=== PATIENT | male | born 1985 | race American Indian/Alaskan Native ===

== ENCOUNTER 2020-05-23 17:12 | Emergency (ER) | payer SELFPAY ==
--- NOTE | 2020-05-23 18:03 | Emergency Department Report ---
ED Psych HPI - General Chief Complaint: Psych Stated Complaint: PSYCH EVAL Time Seen by Provider: 05/23/20 17:53 Source: patient, EMS Mode of arrival: Ambulatory Limitations: No Limitations - History of Present Illness Initial Comments: 34-year-old male with a past medical history of asthma and HIV brought in by EMS for paranoia. Patient feels for the last 2 weeks and was out to get him. He lives in [facility]. He came to the side [facility] and attempt to stay with his ex-girlfriend but she was at home. He called the police because he kept seeing people coming after him. He states he is people do not speak nor do they brandish weapons but he feels like his life is in danger. A while in the waiting room he also saw these people and expresses fear in the ED that the people will still come after him. He feels safer in the ED in the room with the door closed. He denies suicidal homicidal ideation. Denies previous psychiatric history. He is not currently on any meds for HIV and does not know his CD4 count or viral load. Patient states he called the police because he wanted a ride to the [employer] bus stop in [facility] so he can leave town - Related Data Home Medications Medication Instructions Recorded Confirmed Last Taken No Known Home Medications [No 05/24/20 05/26/20 Unknown Reported Home Medications] Allergies Allergy/AdvReac Type Severity Reaction Status Date / Time No Known Allergies Allergy Unverified 05/23/20 17:38 ED Review of Systems ROS: Stated complaint: PSYCH EVAL Other details as noted in HPI Comment: All other systems reviewed and negative ED Past Medical Hx - Past Medical History Previous Medical History?: Yes Hx Asthma: Yes Hx HIV: Yes (Complera) - Surgical History Past Surgical History?: No - Medications Home Medications: Home Medications Medication Instructions Recorded Confirmed Last Taken Type No Known Home Medications [No 05/24/20 05/26/20 Unknown History Reported Home Medications] ED Physical Exam - General Limitations: No Limitations - Other Other exam information: General: No acute distress Head: Atraumatic Eyes: normal appearance ENT: Moist mucous membranes Neck: Normal appearance, no midline tenderness Chest: Clear to auscultation bilaterally CV: Regular rate and rhythm Abdomen: Soft, normal bowel sounds, nontender, nondistended, no rebound or guarding Back: Normal inspection Extremity: Normal inspection, full range of motion Neuro: Alert O x 3, no facial asymmetry, speech clear, no gross motor sensory deficit Psych: paranoid but cooperative Skin: No rash ED Course Vital Signs 05/23/20 05/24/20 05/24/20 20:08 02:09 08:46 Temperature 98.5 F 98.4 F 98.5 F Pulse Rate 90 91 H 81 Respiratory 18 18 18 Rate Blood Pressure 108/52 102/56 134/74 [Left] O2 Sat by Pulse 98 97 99 Oximetry 05/24/20 19:59 Temperature 99.3 F Pulse Rate 98 H Respiratory 18 Rate Blood Pressure 107/61 [Left] O2 Sat by Pulse 97 Oximetry - Consultations Consultation #1: 05/23/20 17:58 called [facility] crisis provider, left a message, no response. 05/23/20 18:14 Give that crisis provider evaluated patient and agrees patient is psychotic and meets 1013 criteria. ED Medical Decision Making - Lab Data Result diagrams: 05/23/20 18:02 05/24/20 18:30 Lab Results 05/23/20 05/23/20 05/23/20 Range/Units 18:02 18:02 18:02 WBC 9.3 (4.5-11.0) K/mm3 RBC 3.86 (3.65-5.03) M/mm3 Hgb 12.4 (11.8-15.2) gm/dl Hct 37.4 (35.5-45.6) % MCV 97 H (84-94) fl MCH 32 (28-32) pg MCHC 33 (32-34) % RDW 12.9 L (13.2-15.2) % Plt Count 297 (140-440) K/mm3 Lymph % (Auto) 18.7 (13.4-35.0) % Ogle % (Auto) 8.7 H (0.0-7.3) % Eos % (Auto) 1.5 (0.0-4.3) % Baso % (Auto) 1.0 (0.0-1.8) % Lymph # (Auto) 1.7 (1.2-5.4) K/mm3 Ogle # (Auto) 0.8 (0.0-0.8) K/mm3 Eos # (Auto) 0.1 (0.0-0.4) K/mm3 Baso # (Auto) 0.1 (0.0-0.1) K/mm3 Seg Neutrophils % 70.1 H (40.0-70.0) % Seg Neutrophils # 6.5 (1.8-7.7) K/mm3 Sodium 134 L (137-145) mmol/L Potassium 3.7 (3.6-5.0) mmol/L Chloride 98.7 (98-107) mmol/L Carbon Dioxide 22 (22-30) mmol/L Anion Gap 17 mmol/L BUN 11 (9-20) mg/dL Creatinine 0.7 L (0.8-1.3) mg/dL Estimated GFR > 60 ml/min BUN/Creatinine Ratio 16 % Glucose 108 H (75-100) mg/dL Calcium 9.0 (8.4-10.2) mg/dL Urine Color (Yellow) Urine Turbidity (Clear) Urine pH (5.0-7.0) Ur Specific [place] (1.003-1.030) Urine Protein (Negative) mg/dL Urine Glucose (UA) (Negative) mg/dL Urine Ketones (Negative) mg/dL Urine Blood (Negative) Urine Nitrite (Negative) Urine Bilirubin (Negative) Urine Urobilinogen (<2.0) mg/dL Ur Leukocyte Esterase (Negative) Urine WBC (Auto) (0.0-6.0) /HPF Urine RBC (Auto) (0.0-6.0) /HPF U Epithel Cells (Auto) (0-13.0) /HPF Urine Mucus /HPF Salicylates < 0.3 L (2.8-20.0) mg/dL Urine Opiates Screen Urine Methadone Screen Acetaminophen (10.0-30.0) ug/mL Ur Barbiturates Screen Ur Phencyclidine Scrn Ur Amphetamines Screen U Benzodiazepines Scrn Urine Cocaine Screen U Marijuana (THC) Screen Drugs of Abuse Note Plasma/Serum Alcohol (0-0.07) % 05/23/20 05/23/20 05/23/20 Range/Units 18:02 18:02 Unknown WBC (4.5-11.0) K/mm3 RBC (3.65-5.03) M/mm3 Hgb (11.8-15.2) gm/dl Hct (35.5-45.6) % MCV (84-94) fl MCH (28-32) pg MCHC (32-34) % RDW (13.2-15.2) % Plt Count (140-440) K/mm3 Lymph % (Auto) (13.4-35.0) % Ogle % (Auto) (0.0-7.3) % Eos % (Auto) (0.0-4.3) % Baso % (Auto) (0.0-1.8) % Lymph # (Auto) (1.2-5.4) K/mm3 Ogle # (Auto) (0.0-0.8) K/mm3 Eos # (Auto) (0.0-0.4) K/mm3 Baso # (Auto) (0.0-0.1) K/mm3 Seg Neutrophils % (40.0-70.0) % Seg Neutrophils # (1.8-7.7) K/mm3 Sodium (137-145) mmol/L Potassium (3.6-5.0) mmol/L Chloride (98-107) mmol/L Carbon Dioxide (22-30) mmol/L Anion Gap mmol/L BUN (9-20) mg/dL Creatinine (0.8-1.3) mg/dL Estimated GFR ml/min BUN/Creatinine Ratio % Glucose (75-100) mg/dL Calcium (8.4-10.2) mg/dL Urine Color Yellow (Yellow) Urine Turbidity Clear (Clear) Urine pH 5.0 (5.0-7.0) Ur Specific [place] 1.018 (1.003-1.030) Urine Protein <15 mg/dl (Negative) mg/dL Urine Glucose (UA) Neg (Negative) mg/dL Urine Ketones Neg (Negative) mg/dL Urine Blood Neg (Negative) Urine Nitrite Neg (Negative) Urine Bilirubin Neg (Negative) Urine Urobilinogen < 2.0 (<2.0) mg/dL Ur Leukocyte Esterase Neg (Negative) Urine WBC (Auto) 4.0 (0.0-6.0) /HPF Urine RBC (Auto) 1.0 (0.0-6.0) /HPF U Epithel Cells (Auto) 1.0 (0-13.0) /HPF Urine Mucus Few /HPF Salicylates (2.8-20.0) mg/dL Urine Opiates Screen Urine Methadone Screen Acetaminophen 5.0 L (10.0-30.0) ug/mL Ur Barbiturates Screen Ur Phencyclidine Scrn Ur Amphetamines Screen U Benzodiazepines Scrn Urine Cocaine Screen U Marijuana (THC) Screen Drugs of Abuse Note Plasma/Serum Alcohol < 0.01 (0-0.07) % 05/23/20 Range/Units Unknown WBC (4.5-11.0) K/mm3 RBC (3.65-5.03) M/mm3 Hgb (11.8-15.2) gm/dl Hct (35.5-45.6) % MCV (84-94) fl MCH (28-32) pg MCHC (32-34) % RDW (13.2-15.2) % Plt Count (140-440) K/mm3 Lymph % (Auto) (13.4-35.0) % Ogle % (Auto) (0.0-7.3) % Eos % (Auto) (0.0-4.3) % Baso % (Auto) (0.0-1.8) % Lymph # (Auto) (1.2-5.4) K/mm3 Ogle # (Auto) (0.0-0.8) K/mm3 Eos # (Auto) (0.0-0.4) K/mm3 Baso # (Auto) (0.0-0.1) K/mm3 Seg Neutrophils % (40.0-70.0) % Seg Neutrophils # (1.8-7.7) K/mm3 Sodium (137-145) mmol/L Potassium (3.6-5.0) mmol/L Chloride (98-107) mmol/L Carbon Dioxide (22-30) mmol/L Anion Gap mmol/L BUN (9-20) mg/dL Creatinine (0.8-1.3) mg/dL Estimated GFR ml/min BUN/Creatinine Ratio % Glucose (75-100) mg/dL Calcium (8.4-10.2) mg/dL Urine Color (Yellow) Urine Turbidity (Clear) Urine pH (5.0-7.0) Ur Specific [place] (1.003-1.030) Urine Protein (Negative) mg/dL Urine Glucose (UA) (Negative) mg/dL Urine Ketones (Negative) mg/dL Urine Blood (Negative) Urine Nitrite (Negative) Urine Bilirubin (Negative) Urine Urobilinogen (<2.0) mg/dL Ur Leukocyte Esterase (Negative) Urine WBC (Auto) (0.0-6.0) /HPF Urine RBC (Auto) (0.0-6.0) /HPF U Epithel Cells (Auto) (0-13.0) /HPF Urine Mucus /HPF Salicylates (2.8-20.0) mg/dL Urine Opiates Screen Negative Urine Methadone Screen Negative Acetaminophen (10.0-30.0) ug/mL Ur Barbiturates Screen Negative Ur Phencyclidine Scrn Negative Ur Amphetamines Screen Negative U Benzodiazepines Scrn Negative Urine Cocaine Screen Negative U Marijuana (THC) Screen Negative Drugs of Abuse Note Disclamer Plasma/Serum Alcohol (0-0.07) % - Radiology Data Radiology results: report reviewed NONENHANCED CT SCAN OF THE HEAD: INDICATION / CLINICAL INFORMATION: 34 years Male; new onset psychosis. TECHNIQUE: Routine CT head without contrast. All CT scans at this location are performed using CT dose reduction for ALARA by means of automated exposure control. COMPARISON: None. FINDINGS: BRAIN / INTRACRANIAL CONTENTS: No acute hemorrhage, mass effect, midline shift, hydrocephalus, or acute, large territorial infarct. No chronic infarct or focal atrophy. Normal brain volume and ventricular/sulcal size for age. No significant white matter abnormality. CRANIOCERVICAL JUNCTION: No significant abnormality. ORBITS: No significant abnormality of visualized orbits. SINUSES / MASTOIDS: No significant abnormality of the visualized paranasal sinuses or mastoid air cells. ADDITIONAL FINDINGS: None. IMPRESSION: Normal nonenhanced CT scan of the brain - Medical Decision Making Patient presents to the hospital with psychosis and paranoid delusions with no k nown psychiatric history. Patient is HIV positive with unknown CD4 count. At this time labs, UA, UDS, CT head all are fairly unremarkable and did not require acute management/intervention. Patient sodium of 134 noted and is very mild hyponatremia not requiring acute intervention. 1013 signed for acute psychosis and paranoia with mental health evaluation inpatient placement and treatment pending Critical care attestation.: If time is entered above; I have spent that time in minutes in the direct care of this critically ill patient, excluding procedure time. ED Disposition Clinical Impression: Acute psychosis, Paranoid delusion, HIV positive, Medical clearance for psychiatric admission Disposition: DC-01 TO HOME OR SELFCARE Is pt being admited?: No Condition: Stable
[2020-05-23] MEDS ORDERED: ZIPRASIDONE MESYLATE 20 MG VIAL IM ONE (18:13)
[2020-05-23 18:33] LABS: Basophils # (Auto) 0.1 K/mm3 (0.0-0.1); Eosinophils # (Auto) 0.1 K/mm3 (0.0-0.4); Eosinophils % (Auto) 1.5 % (0.0-4.3); Hematocrit 37.4 % (35.5-45.6); Hemoglobin 12.4 gm/dl (11.8-15.2); Lymphocytes # (Auto) 1.7 K/mm3 (1.2-5.4); Lymphocytes % (Auto) 18.7 % (13.4-35.0); Mean Corpuscular HGB Conc 33 % (32-34); Mean Corpuscular Volume 97 fl (84-94); Monocytes # (Auto) 0.8 K/mm3 (0.0-0.8); Monocytes % (Auto) 8.7 % (0.0-7.3); Platelet Count 297 K/mm3 (140-440); Red Blood Count 3.86 M/mm3 (3.65-5.03); Red Cell Distribution Width 12.9 % (13.2-15.2)
[2020-05-23 18:37] LABS: Blood Urea Nitrogen 11 mg/dL (9-20); Hemolysis Index 16
[2020-05-23 18:38] LABS: BUN/Creatinine Ratio 16
[2020-05-23] MEDS ORDERED: WATER FOR INJ Sterile (PF) 10 ML ONE (18:54)
[2020-05-23 19:26] LABS: Bilirubin,Urine NEG (Negative); Blood,Urine NEG (Negative); Color,Urine Yellow (Yellow); Mucus,Urine FEW /HPF; Protein,Urine <15 mg/dL mg/dL (Negative); Urobilinogen,Urine < 2.0 mg/dL (<2.0)
[2020-05-23 19:32] LABS: Amphetamine Screen,Urine Negative; Benzodiazepines Screen,Urine Negative; Cannabinoid Screen,Urine Negative; Cocaine Screen,Urine Negative; Methadone Screen,Urine Negative
[2020-05-23 19:54] LABS: Opiate Screen,Urine Negative
--- NOTE | 2020-05-23 20:16 | Cat Scan Report ---
NONENHANCED CT SCAN OF THE HEAD: INDICATION / CLINICAL INFORMATION: 34 years Male; new onset psychosis. TECHNIQUE: Routine CT head without contrast. All CT scans at this location are performed using CT dos e reduction for ALARA by means of automated exposure control. COMPARISON: None. FINDINGS: BRAIN / INTRACRANIAL CONTENTS: No acute hemorrhage, mass effect, midline shift, hydrocephalus, or acu te, large territorial infarct. No chronic infarct or focal atrophy. Normal brain volume and ventricul ar/sulcal size for age. No significant white matter abnormality. CRANIOCERVICAL JUNCTION: No significant abnormality. ORBITS: No significant abnormality of visualized orbits. SINUSES / MASTOIDS: No significant abnormality of the visualized paranasal sinuses or mastoid air miroslava ls. ADDITIONAL FINDINGS: None. IMPRESSION: Normal nonenhanced CT scan of the brain Signer Name: Kenyon Matthews MD Signed: 05/23/2020 8:11 PM Workstation Name: [id number]
[2020-05-24] MEDS ORDERED: HALOPERIDOL LACTATE 5 MG/1 ML INJ IM PRN (09:41)
[2020-05-24] MEDS ORDERED: LORazepam 2 MG/ML VIAL IM PRN (09:41)
--- NOTE | 2020-05-24 10:33 | Consultation ---
History of Present Illness - Reason for Consult Consult date: 05/24/20 Reason for consult: paranoia - History of Present Psychiatric Illness The patient's medical record was reviewed and the patient's progress was discussed with the nursing staff. The nursing staff states the patient is requesting that his door remains shut and locked because he thinks people are out to get him. Ryan Nichole is a 34y/o male patient who presented to the ER with paranoia. During my interview with the patient he is in the isolation room. He is a/o x 3. He is paranoid and appears anxious. The patient is delusional. He's states, "I'm not paranoid, my mind is clear. Look how I'm looking at you." He then says, "that paulie who keeps walking by, he's trying to kill me." He says, "they are all in a clique. It's Mexicans involved too. They have weapons in that room." The patient says, "all yall are in this together and yall need to quit trying to play these mind games." He says, "I know everybody's faces." The patient denies hallucinations of any kind. He denies SI/HI. He then says, "I don't want to hurt anybody, but if they are trying to hurt me that's different." He says he uses "weed." He initially denies any other illicit drug use, but then states, "I think meth and cocaine was in the weed." The patient tells me he was once diagnosed with "bipolar" but states, "I don't have a mental health record." PAST PSYCHIATRIC HISTORY: Diagnoses: Bipolar Suicide attempts or Self-harm behavior: Denies Prior psychiatric hospitalizations: Denies Substance Abuse history: weed Previous psychiatric medications tried: Seroquel Outpatient treatment: no PAST MEDICAL HISTORY: HIV, asthma Family Psychiatric History: None reported or documented SOCIAL HISTORY Marital Status: Single Living Arrangements: with a friend Employment Status: Unemployed Access to guns/weapons: None reported Education: History of Abuse: None reported Legal History: None reported REVIEW OF SYSTEMS Constitutional: Negative for weight loss ENT: Negative for stridor Respiratory: Negative for cough or hemoptysis All other systems reviewed and are negative MENTAL STATUS EXAMINATION General Appearance: Dressed appropriately Behavior: anxious, paranoid, good eye contact Cooperation: Participating/engaged Psychomotor Behavior: Psychomotor normal Mood: "not good" Affect and affective range: congruent with mood Thought Process: illogical Thought Content: paranoia, delusional Speech: Normal rate, volume and rhythm Suicidal Ideation: Denies Homicidal Ideation: Denies Hallucinations: Denies Delusions: Paranoid, delusional Impulse Control: unimpaired Insight and Judgment: Impaired Memory/Cognition: Limited Attention: Normal Assessment and Plan (1) Delusional Disorder (2) Noncompliant with medical regimen and other treatment TREATMENT 1013 Risperidone 0.5mg po BID Hydroxyzine 25mg po BID Trazodone 50mg po qhs Melatonin 5mg po qhs prn insomnia Sitter: Defer to primary Medical: Per primary Disposition: Recommend acute inpatient treatment Will follow. Thank you for this consult Medications and Allergies Allergies Allergy/AdvReac Type Severity Reaction Status Date / Time No Known Allergies Allergy Unverified 05/23/20 17:38 Home Medications Medication Instructions Recorded Confirmed Last Taken Type No Known Home Medications [No 05/24/20 05/24/20 Unknown History Reported Home Medications] Active Meds: Active Medications Haloperidol Lactate (Haldol) 5 mg IM Q6HR PRN PRN Reason: Agitation Lorazepam (Ativan) 2 mg IM Q4HR PRN PRN Reason: Agitation Mental Status Exam - Vital signs Last Vital Signs Temp 98.5 F 05/24/20 08:46 Pulse 81 05/24/20 08:46 Resp 18 05/24/20 08:46 BP 134/74 05/24/20 08:46 Pulse Ox 99 05/24/20 08:46 Results Result Diagrams: 05/23/20 18:02 05/23/20 18:02 Abnormal lab results 05/23/20 05/23/20 05/23/20 Range/Units 18:02 18:02 18:02 MCV 97 H (84-94) fl RDW 12.9 L (13.2-15.2) % [place] % (Auto) 8.7 H (0.0-7.3) % Seg Neutrophils % 70.1 H (40.0-70.0) % Sodium 134 L (137-145) mmol/L Creatinine 0.7 L (0.8-1.3) mg/dL Glucose 108 H (75-100) mg/dL Salicylates < 0.3 L (2.8-20.0) mg/dL Acetaminophen (10.0-30.0) ug/mL 05/23/20 Range/Units 18:02 MCV (84-94) fl RDW (13.2-15.2) % [place] % (Auto) (0.0-7.3) % Seg Neutrophils % (40.0-70.0) % Sodium (137-145) mmol/L Creatinine (0.8-1.3) mg/dL Glucose (75-100) mg/dL Salicylates (2.8-20.0) mg/dL Acetaminophen 5.0 L (10.0-30.0) ug/mL All other labs normal.
[2020-05-24] MEDS: hydrOXYzine PAMOATE 25 MG CAP PO SCH ×2 (11:42→21:48)
[2020-05-24] MEDS: risperiDONE 0.25 MG TAB PO SCH ×2 (11:42→21:48)
[2020-05-24 19:29] LABS: BUN/Creatinine Ratio 14; Blood Urea Nitrogen 11 mg/dL (9-20); Calcium 8.7 mg/dL (8.4-10.2); Hemolysis Index 14
[2020-05-24 20:38] VITALS: BP 107/61
[2020-05-24] MEDS ORDERED: MELATONIN 5 MG TAB PO PRN (22:00)
[2020-05-24] MEDS ORDERED: traZODone 50 MG TAB PO SCH (22:00)
[2020-05-25] MEDS ORDERED: ACETAMINOPHEN 325 MG TAB ONE (02:06)
[2020-05-25] MEDS ORDERED: PENICILLIN G BENZATHINE 1.2 MILLION UNIT/2 ML INJ IM ONE (03:47)
--- NOTE | 2020-05-25 19:14 | Progress Note ---
Subjective - Reason for Consult Consult date: 05/25/20 Reason for consult: paranoid - Chief Complaint Chief complaint: The patient's medical record was reviewed and the patient's progress was discussed with the nursing staff. The nurse and sitter today state the patient has not exhibited any further signs of paranoia. They say he's been calm and cooperative. During my interview with the patient today, he is lying down. He is no longer in the isolation room. He is much more calm, and cooperative. He is lucid. He says he "feels much better than yesterday, but I just don't feel good." The patient says "I'm tired." When asking was he still feeling like people were after him, he replied "no, I don't feel like that at all." He denies hallucinations of any kind. REVIEW OF SYSTEMS Constitutional: Negative for weight loss ENT: Negative for stridor Respiratory: Negative for cough or hemoptysis All other systems reviewed and are negative MENTAL STATUS EXAMINATION General Appearance: Dressed appropriately Behavior: calm and cooperative Cooperation: Participating/engaged Psychomotor Behavior: Psychomotor normal Mood: "better, just don't feel good" Affect and affective range: congruent with mood Thought Process: goal directed Thought Content: logical Speech: Normal rate, volume and rhythm Suicidal Ideation: Denies Homicidal Ideation: Denies Hallucinations: Denies Delusions: None elicited Impulse Control: unimpaired Insight and Judgment: Impaired Memory/Cognition: Limited Attention: Normal Assessment and Plan (1) Delusional Disorder (2) Noncompliant with medical regimen and other treatment TREATMENT d/c 1013 Scripts: Risperidone 0.5mg po BID Hydroxyzine 25mg po BID Trazodone 50mg po qhs Sitter: Defer to primary Medical: Per primary Disposition: Do not recommend acute inpatient treatment. The patient may discharge once medically clear. He understands that if feelings of endangerment are to return or if SI/HI arise he is to seek immediate assistance including but not limited to crisis hotline, ER/911 He is to abstain from all illicit drug use He is to follow up with outpatient psych in 7 to 14 days upon discharge. The dice table operator is to give the patient resources for outpatient, safety plan, cognitive behavior therapy resources and drug rehabilitation. Will sing off. Thank you for this consult Mental Status Exam - Vital signs Last Vital Signs Temp 99.3 F 10/26/20 19:59 Pulse 98 H 05/24/20 19:59 Resp 18 05/24/20 19:59 BP 107/61 05/24/20 19:59 Pulse Ox 97 05/24/20 19:59
== END 2020-05-25 13:35 | disposition home or self-care (01) ==
LOC: EEVIPCON 17:12 → ED 17:12
DX: F22 Delusional disorders (principal); F23 Brief psychotic disorder; J45.909 Unspecified asthma, uncomplicated; Z21 Asymptomatic human immunodeficiency virus [HIV] infection status; Z00.8 Encounter for other general examination
CPT/HCPCS: 36415; 70450; 80048; 80307; 81001; 85025; 96372; 99285; J0561; J3486; Q0177; 80320; G0480

== ENCOUNTER 2020-05-25 18:33 | Emergency (ER) | payer SELFPAY ==
[~2020-05-25 18:33] MED LIST: ACETAMINOPHEN 325 MG TAB ONE; PENICILLIN G BENZATHINE 1.2 MILLION UNIT/2 ML INJ IM ONE
== END 2020-05-25 18:55 | disposition left against medical advice (07) ==
LOC: ED 18:33
DX: M54.2 Cervicalgia (principal); Z53.21 Procedure and treatment not carried out due to patient leaving prior to being seen by health care provider
CPT/HCPCS: J0561

== ENCOUNTER 2020-05-26 05:58 | Emergency (ER) | payer SELFPAY ==
[2020-05-26 14:27] VITALS: BP 103/56
--- NOTE | 2020-05-26 16:52 | Emergency Department Report ---
ED General Adult HPI - General Chief complaint: Psych Stated complaint: MH EVALUATION PUI?: No Time Seen by Provider: 05/26/20 09:51 Source: patient, RN notes reviewed, old records reviewed Mode of arrival: Ambulatory Limitations: No Limitations - History of Present Illness Initial comments: The patient was evaluated in the emergency department for symptoms described in the history of present illness. He/she was evaluated in the context of the global COVID-19 pandemic, which necessitated consideration that the patient might be at risk for infection with the virus that causes COVID-19. Institutional protocols and algorithms that pertain to the evaluation of patients at risk for COVID-19 are in a state of rapid change based on information released by regulatory bodies including the CDC and federal and state organizations. These policies and algorithms were followed during the patient's care in the emergency department. Please note that these policies, procedures and recommendations changed on a rapid basis. This is a 34-year-old gentleman who is known to myself previously. He was recently discharged from this emergency room yesterday. He was seen and evaluated by case management psychiatry, and provided outpatient resources. The patient presents today with a complaint of pain with hallucinations, after initially complained that he was homeless. The patient makes no complaint of homicidality or suicidality. The patient is calm and cooperative. The patient makes no complaint of physical pain at this time. Severity scale (0 -10): 0 - Related Data Home Medications Medication Instructions Recorded Confirmed Last Taken No Known Home Medications [No 05/24/20 05/26/20 Unknown Reported Home Medications] Allergies Allergy/AdvReac Type Severity Reaction Status Date / Time No Known Allergies Allergy Unverified 05/23/20 17:38 ED Review of Systems ROS: Stated complaint: MH EVALUATION Other details as noted in HPI ED Past Medical Hx - Past Medical History Hx Asthma: Yes Hx HIV: Yes (Complera) - Social History Smoking Status: Current Every Day Smoker Substance Use Type: None - Medications Home Medications: Home Medications Medication Instructions Recorded Confirmed Last Taken Type No Known Home Medications [No 05/24/20 05/26/20 Unknown History Reported Home Medications] ED Physical Exam - General Limitations: No Limitations General appearance: alert, in no apparent distress - Head Head exam: Present: atraumatic, normocephalic - Eye Eye exam: Present: normal appearance, EOMI. Absent: nystagmus - ENT ENT exam: Present: normal exam, normal orophraynx, mucous membranes moist, normal external ear exam - Neck Neck exam: Present: normal inspection, full ROM. Absent: tenderness, meningismus - Respiratory Respiratory exam: Present: normal lung sounds bilaterally. Absent: respiratory distress, wheezes, rales, rhonchi, stridor, decreased breath sounds - Cardiovascular Cardiovascular Exam: Present: regular rate, normal rhythm, normal heart sounds. Absent: bradycardia, tachycardia, irregular rhythm, systolic murmur, diastolic murmur, rubs, gallop - GI/Abdominal GI/Abdominal exam: Present: soft, normal bowel sounds. Absent: distended, tenderness, guarding, rebound, rigid, pulsatile mass - Rectal Rectal exam: Present: deferred - Extremities Exam Extremities exam: Present: normal inspection, full ROM, other (2+ pulses noted in the bilateral upper and lower extremities. There is no palpable cord. negative Homans sign. Muscular compartments are soft. The pelvis is stable.). Absent: pedal edema, calf tenderness - Back Exam Back exam: Present: normal inspection, full ROM. Absent: tenderness, CVA tenderness (R), CVA tenderness (L), muscle spasm, paraspinal tenderness, vertebral tenderness - Neurological Exam Neurological exam: Present: alert, oriented X3, normal gait, other (No facial droop. Tongue midline. Extraocular movements intact bilaterally. Facial sensation intact to light touch in V1, V2, V3 distribution bilaterally. 5 and a 5 strength in 4 extremities. Sensation intact to light touch in 4 extremities.). Absent: motor sensory deficit - Psychiatric Psychiatric exam: Present: normal affect, normal mood - Skin Skin exam: Present: warm, dry, intact, normal color. Absent: rash ED Course Vital Signs 05/26/20 14:26 Temperature 98.0 F Pulse Rate 90 Respiratory 20 Rate Blood Pressure 103/56 [Left] O2 Sat by Pulse 100 Oximetry ED Medical Decision Making - Medical Decision Making Vital Signs 05/26/20 14:26 Temperature 98.0 F Pulse Rate 90 Respiratory 20 Rate Blood Pressure 103/56 [Left] O2 Sat by Pulse 100 Oximetry Differential diagnosis, include not limited to: Homelessness, malingering, case management patient Assessment and plan: 34-year-old gentleman, who is afebrile, with reassuring vital signs, who has been previously observed in this department 4 days, was cleared by psychiatry yesterday, who presented today with an initial complaint of homelessness, and when provided with outpatient resources, made nonspecific comments about hallucinations. Suspect that the patient is malingering for the purposes of group home and secondary gain. Placing this patient on a psych hold/1013 goals forced to reinforce maladaptive behaviors and coping mechanisms. Patient does not present as acutely psychotic in my opinion, he is alert and oriented, sober, and cooperative. If, in the unlikely event he is truly experiencing hallucinations, he may follow-up at [facility] or local outpatient psychiatric facility. In addition, the patient was provided with outpatient resources yesterday. Critical care attestation.: If time is entered above; I have spent that time in minutes in the direct care of this critically ill patient, excluding procedure time. ED Disposition Clinical Impression: Case management patient, Fadiingershekhar, Homelessness Disposition: DC-01 TO HOME OR SELFCARE Is pt being admited?: No Does the pt Need Aspirin: No Condition: Stable Additional Instructions: Please continue the prescription medications which were provided to the patient yesterday by the psychiatric team. Please follow-up with the outpatient homeless resources that were provided to the patient yesterday by the psychiatric team. Patient may follow-up with local outpatient mental health [facility] mental health department, or he may present himself to [facility], or any of the local outpatient psychiatric facilities, if he would like further dedicated psychiatric evaluation. Referrals: [facility] [Outside] - 3-5 Days [facility] [Outside] - 3-5 Days [facility] [Provider Group] - 3-5 Days
== END 2020-05-26 17:44 | disposition home or self-care (01) ==
LOC: ED 05:58
DX: R44.3 Hallucinations, unspecified (principal); J45.909 Unspecified asthma, uncomplicated; F17.200 Nicotine dependence, unspecified, uncomplicated; Z21 Asymptomatic human immunodeficiency virus [HIV] infection status; Z76.5 Malingerer [conscious simulation]; Z59.0 Homelessness; Z71.89 Other specified counseling

== ENCOUNTER 2020-05-26 20:01 | Emergency (ER) | payer SELFPAY ==
[2020-05-26 21:40] LABS: Basophils # (Auto) 0.2 K/mm3 (0.0-0.1); Basophils % (Auto) 1.5 % (0.0-1.8); Eosinophils # (Auto) 0.3 K/mm3 (0.0-0.4); Eosinophils % (Auto) 3.4 % (0.0-4.3); Hematocrit 36.6 % (35.5-45.6); Hemoglobin 12.1 gm/dl (11.8-15.2); Lymphocytes # (Auto) 2.9 K/mm3 (1.2-5.4); Lymphocytes % (Auto) 28.8 % (13.4-35.0); Mean Corpuscular HGB Conc 33 % (32-34); Mean Corpuscular Volume 96 fl (84-94); Monocytes # (Auto) 1.3 K/mm3 (0.0-0.8); Monocytes % (Auto) 12.9 % (0.0-7.3); Platelet Count 279 K/mm3 (140-440); Red Blood Count 3.81 M/mm3 (3.65-5.03); Red Cell Distribution Width 12.4 % (13.2-15.2)
[2020-05-26 21:52] LABS: Bilirubin,Urine NEG (Negative); Blood,Urine NEG (Negative); Color,Urine Yellow (Yellow); Mucus,Urine 2+ /HPF
[2020-05-26 21:58] LABS: Amphetamine Screen,Urine PRESUMPTIVE POSITIVE; Benzodiazepines Screen,Urine PRESUMPTIVE NEGATIVE; Cannabinoid Screen,Urine PRESUMPTIVE NEGATIVE; Cocaine Screen,Urine PRESUMPTIVE NEGATIVE; Methadone Screen,Urine PRESUMPTIVE NEGATIVE; Opiate Screen,Urine PRESUMPTIVE NEGATIVE
[2020-05-26 21:58] LABS: Blood Urea Nitrogen 12 mg/dL (9-20); Calcium 8.6 mg/dL (8.4-10.2); Hemolysis Index 13
[2020-05-26 22:06] LABS: BUN/Creatinine Ratio 17
[2020-05-27 02:56] VITALS: BP 122/82
--- NOTE | 2020-05-27 03:04 | Emergency Department Report ---
ED Psych HPI - General Chief Complaint: Psych Stated Complaint: SI HEARING VOICES Time Seen by Provider: 05/27/20 02:45 Source: patient Mode of arrival: Ambulatory Limitations: No Limitations - History of Present Illness Initial Comments: Patient is a 34-year-old male that presents emergency room with complaints of suicidal ideations and hallucinations. Patient states his suicidal ideations have been going on for 3 days. Patient states he been hearing voices for 1 week. Patient states that he was here earlier discharge but they did not give him the treatment that he wanted. Patient states he then went to [facility] and he said he did they did not have a bed and they sent him back here to be evaluated. Patient denies having a plan. Patient states he is just having thoughts. Patient denies homicidal ideations. Patient denies depression. Patient states the voices are talking to him. Patient denies command hallucinations. Patient denies recent travel. Patient denies recent international travel. Patient denies exposure to the novel coronavirus. Patient denies sick contacts. Patient denies fever and chills. Patient denies cough. Patient denies diarrhea. Patient denies coming in contact with anybody with symptoms of the novel coronavirus. Complaint: suicidal ideation -: Sudden Associated Psychiatric Symptoms: suicidal ideation, auditory hallucinations History of same: Yes Quality: constant Improves With: none Worsens With: none If Self Harm: admits thoughts of - Related Data Home Medications Medication Instructions Recorded Confirmed Last Taken No Known Home Medications [No 05/24/20 05/26/20 Unknown Reported Home Medications] Allergies Allergy/AdvReac Type Severity Reaction Status Date / Time No Known Allergies Allergy Unverified 05/23/20 17:38 ED Review of Systems ROS: Stated complaint: SI HEARING VOICES Other details as noted in HPI Constitutional: denies: chills, fever Eyes: denies: eye pain, eye discharge, vision change ENT: denies: ear pain, throat pain Respiratory: denies: cough, shortness of breath, wheezing Cardiovascular: denies: chest pain, palpitations Endocrine: no symptoms reported Gastrointestinal: denies: abdominal pain, nausea, diarrhea Genitourinary: denies: urgency, dysuria Musculoskeletal: denies: back pain, joint swelling, arthralgia Skin: denies: rash, lesions Neurological: denies: headache, weakness, paresthesias Psychiatric: auditory hallucinations, suicidal thoughts. denies: anxiety, depression Hematological/Lymphatic: denies: easy bleeding, easy bruising ED Past Medical Hx - Past Medical History Previous Medical History?: Yes Hx Psychiatric Treatment: Yes (Schizophrenia. bipolar) Hx Asthma: Yes Hx HIV: Yes (Complera) - Surgical History Past Surgical History?: No - Family History Family history: no significant - Social History Smoking Status: Current Every Day Smoker Substance Use Type: Cocaine, Marijuana - Medications Home Medications: Home Medications Medication Instructions Recorded Confirmed Last Taken Type No Known Home Medications [No 05/24/20 05/26/20 Unknown History Reported Home Medications] ED Physical Exam - General Limitations: No Limitations General appearance: alert, in no apparent distress - Head Head exam: Present: atraumatic, normocephalic - Eye Eye exam: Present: normal appearance - ENT ENT exam: Present: mucous membranes moist - Neck Neck exam: Present: normal inspection - Respiratory Respiratory exam: Present: normal lung sounds bilaterally. Absent: respiratory distress - Cardiovascular Cardiovascular Exam: Present: regular rate, normal rhythm. Absent: systolic murmur, diastolic murmur, rubs, gallop - GI/Abdominal GI/Abdominal exam: Present: soft, normal bowel sounds - Rectal Rectal exam: Present: deferred - Extremities Exam Extremities exam: Present: normal inspection - Back Exam Back exam: Present: normal inspection - Neurological Exam Neurological exam: Present: alert, oriented X3 - Psychiatric Psychiatric exam: Present: flat affect, suicidal ideation. Absent: manic, homicidal ideation - Expanded Psychiatric Exam Expanded Focused psych exam: Absent: pressured speech, internal stimuli, echolalia, psychomotor agitation, delusional, paranoid, catatonic, mute, perseverating, euphoric, restlessness, flight of ideas, loose associations - Skin Skin exam: Present: warm, dry, intact, normal color. Absent: rash ED Course Vital Signs 05/26/20 05/27/20 20:35 02:45 Temperature 98.7 F 98.2 F Pulse Rate 101 H 93 H Respiratory 20 18 Rate Blood Pressure 118/76 Blood Pressure 122/82 [Left] O2 Sat by Pulse 100 100 Oximetry - Reevaluation(s) Reevaluation #1: Patient has already been evaluated by our mental health manager group. Patient has been psychiatrically cleared and once the patient was discharged the patient has come back again to be evaluated. Patient appears to be malingering. Patient does not have a plan. Patient is stable to follow-up as an outpatient. Patient given resources. I discussed all results and clinical findings with patient. I discussed plan of care with patient. Patient agrees with plan of care. Patient is stable for discharge. Patient will be discharged home. Patient given discharge instructions. Patient voiced understanding of discharge instructions. 05/27/20 03:03 ED Medical Decision Making - Lab Data Result diagrams: 05/26/20 21:20 05/26/20 21:20 - Medical Decision Making Patient is a 34-year-old male who presents emergency room for another visit today. Patient is already been evaluated by our mental health providers and was psychiatrically cleared. Patient has returned with new complaints. Patient appears to be malingering. Patient does not have a plan. Patient appears to be stable from a psychiatric standpoint. Patient is medically cleared. Patient does not meet criteria for inpatient psychiatric stabilization or a 1013. Patient is stable for discharge. Patient be discharged home. Patient's labs are unremarkable. - Differential Diagnosis Hallucination, suicidal ideation, malingering. Critical care attestation.: If time is entered above; I have spent that time in minutes in the direct care of this critically ill patient, excluding procedure time. ED Disposition Clinical Impression: Malingerer, Hallucinations Disposition: DC-01 TO HOME OR SELFCARE Is pt being admited?: No Does the pt Need Aspirin: No Condition: Stable Instructions: Depression (ED) Additional Instructions: Patient to follow-up with primary care in 2 to 3 days. Patient to follow-up with psychiatry in 2 to 3 days. Patient to rest. Patient to increase water. Patient continue all medications. Patient to return to the ER if condition worsens, changes or new symptoms arise. Referrals: PRIMARY CARE, [Primary Care Provider] - 2-3 Days [facility] [Outside] - [facility] Time of Disposition: 03:05
== END 2020-05-27 03:15 | disposition home or self-care (01) ==
LOC: ED 20:01
DX: F25.0 Schizoaffective disorder, bipolar type (principal); J45.909 Unspecified asthma, uncomplicated; F17.200 Nicotine dependence, unspecified, uncomplicated; F12.10 Cannabis abuse, uncomplicated; Z21 Asymptomatic human immunodeficiency virus [HIV] infection status; Z76.5 Malingerer [conscious simulation]
CPT/HCPCS: 36415; 80048; 80307; 80320; 81001; 85025; 87400; 87430; G0480